=== PATIENT | male | born 1945 | race Caucasian/White ===

== ENCOUNTER → 2020-01-01 08:28 | Outpatient (BNVA) | payer MEDICARE, SELFPAY | PROVIDERS: PCP Internal Medicine; Referring Provider Internal Medicine; Visit Provider Nurse Practitioner Family | DX: G47.33 Obstructive sleep apnea (adult) (pediatric) (principal) | CPT/HCPCS: Q3014 ==

== ENCOUNTER 2020-03-24 13:01 | Outpatient (REF) | payer MEDICARE, SELFPAY | END 2020-03-24 13:02 | disposition home or self-care (01) | LOC: HO.LAB 13:01 | PROVIDERS: PCP Internal Medicine; Visit Provider Internal Medicine | DX: Z20.822 Contact with and (suspected) exposure to COVID-19 (principal) | CPT/HCPCS: 36415; C9803; U0003; U0005 ==

== ENCOUNTER 2020-04-10 11:59 | Outpatient (REF) | payer OTHER, SELFPAY | END 2020-04-10 12:00 | disposition home or self-care (01) | LOC: HO.LAB 11:59 | PROVIDERS: Visit Provider Internal Medicine | DX: Z20.822 Contact with and (suspected) exposure to COVID-19 (principal) | CPT/HCPCS: 36415; C9803; U0003; U0005 ==

== ENCOUNTER 2020-07-10 12:34 | Outpatient (REF) | payer MEDICARE, MEDICAID, SELFPAY | END 2020-07-10 12:35 | disposition home or self-care (01) | LOC: HO.LAB 12:34 | PROVIDERS: Visit Provider Internal Medicine | DX: Z20.822 Contact with and (suspected) exposure to COVID-19 (principal) | CPT/HCPCS: C9803; U0003; U0005 ==

== ENCOUNTER 2021-02-10 10:33 | Outpatient (REF) | payer MEDICARE, MEDICAID, SELFPAY ==
[2021-02-10 13:53] LABS: Binax Internal Control QC Valid; Binax Lot number: 9864; Binax Now Covid-19 Ag Negative (Negative)
== END 2021-02-10 10:34 | disposition home or self-care (01) ==
LOC: HO.LAB 10:33
PROVIDERS: Visit Provider Internal Medicine
DX: Z20.822 Contact with and (suspected) exposure to COVID-19 (principal)
CPT/HCPCS: 36415

== ENCOUNTER 2021-05-11 13:42 | Outpatient (REF) | payer OTHER, MEDICARE, SELFPAY ==
[2021-05-11 15:17] LABS: Vitamin B12 739 pg/mL (200-900)
== END 2021-05-11 13:43 | disposition home or self-care (01) ==
LOC: HO.LAB 13:42
PROVIDERS: PCP Internal Medicine; Visit Provider Psychiatry & Neurology Neurology
DX: G31.84 Mild cognitive impairment of uncertain or unknown etiology (principal)
CPT/HCPCS: 36415; 82607

== ENCOUNTER 2021-05-14 10:58 | Outpatient (REF) | payer MEDICARE, SELFPAY ==
[2021-05-14 12:39] LABS: MANUAL DIFF FLAG NO
[2021-05-14 12:53] LABS: Basophils Percent Auto 0.5 % (0-2); Eosinophils Absolute Auto 0.1 X10*3/uL (0.0-0.4); Eosinophils Percent Auto 1.6 % (0-4); Hemoglobin 15.7 g/dl (14.0-18.0); Imm Gran Abs Auto 0.03 X10*3/uL (0.00-0.03); Imm Gran Pct Auto 0.5 % (0.0-0.4); Lymphocytes Absolute Auto 1.1 X10*3/uL (1.2-4.9); Lymphocytes Percent Auto 18.7 % (20-40); Mean Corpuscular HGB Conc 32.7 g/dl (31.0-36.0); Mean Corpuscular Hemoglobin 30.4 pg (27.0-33.0); Mean Corpuscular Volume 92.8 fL (80.0-98.0); Mean Platelet Volume 9.7 fL (9.4-12.4); Monocytes Absolute Auto 0.6 X10*3/uL (0.1-1.2); Monocytes Percent Auto 10.1 % (2-11); Neutrophils Absolute Auto 3.9 x10*3/uL (2.0-8.3); Neutrophils Percent Auto 68.6 % (45-73); Platelet Count 279 X10*3/uL (160-400); Red Blood Count 5.17 X10*6/uL (4.60-5.80); Red Cell Distribution Width 13.4 % (11.0-16.0); White Blood Count 5.7 X10*3/uL (4.8-10.8)
[2021-05-14 13:18] LABS: Alanine Aminotransferase 33 U/L (0-40); Albumin Level 4.4 g/dL (3.5-5.0); Alkaline Phosphatase 94 U/L (39-117); Anion Gap 12 (12-20); Aspartate Amino Transferase 25 U/L (5-37); Bilirubin Total 0.7 mg/dL (0.0-1.0); Blood Urea Nitrogen 23 mg/dL (9-16); Calcium 9.9 mg/dL (8.4-10.2); Carbon Dioxide 29 mmol/L (22-29); Chloride 104 mmol/L (96-108); Estimated Glomerular Filt Rate > 60; Glucose Random 107 mg/dL (60-115); Potassium 5.6 mmol/L (3.3-5.1); Sodium 139 mmol/L (135-145); Total Protein 7.3 g/dL (6.5-8.0)
== END 2021-05-14 10:59 | disposition home or self-care (01) ==
LOC: HO.LAB 10:58
PROVIDERS: PCP Internal Medicine; Referring Provider Internal Medicine; Visit Provider Nurse Practitioner
DX: Z01.818 Encounter for other preprocedural examination (principal); Z80.0 Family history of malignant neoplasm of digestive organs
CPT/HCPCS: 36415; 80053; 85025; 99212

== ENCOUNTER → 2021-05-26 08:57 | Outpatient (BNVA) | payer MEDICARE, SELFPAY | PROVIDERS: PCP Internal Medicine; Visit Provider Nurse Practitioner Family | DX: G47.33 Obstructive sleep apnea (adult) (pediatric) (principal); Z79.899 Other long term (current) drug therapy | CPT/HCPCS: 99212 ==

== ENCOUNTER 2021-12-21 11:21 | Outpatient (REF) | payer MEDICARE, SELFPAY ==
--- NOTE | ~2021-12-21 | CT_ITS ---
EXAMINATION: CT HEAD WITHOUT CONTRAST CLINICAL INFORMATION: 76-year-old with head injury. COMPARISON: None. TECHNIQUE: Contiguous axial imaging was performed from the skull base to vertex without intravenous administration of contrast. This CT examination was performed using dose optimization techniques as appropriate, variously including the following: *Automated exposure control *Adjustment of mA and/or kV according to patient size (this includes techniques or standardized protocols for targeted exams where dose is matched to indication/reason for exam; i.e. extremities or head) *Use of iterative reconstruction technique DLP: 801 mGy-cm FINDINGS: No intracranial hemorrhage, extra-axial fluid collections, space-occupying process or mass effect. Downing-white matter differentiation is well maintained. 2 mm hypodensity in the ventral right thalamus noted, which is nonspecific and could reflect a perivascular space or a tiny remote infarct. Otherwise the brain parenchyma is normal in attenuation. The ventricular system and subarachnoid spaces are within normal limits without hydrocephalus. Calvarium is intact. The visualized airspaces are unopacified. The visualized extracranial soft tissue structures and intraorbital soft tissue structures appear symmetric and unremarkable within the limitations of the exam. CT/CT head/brain wo IV con IMPRESSION: 1. No acute intracranial process. No evidence for intracranial traumatic sequelae. 2. Possible prominent perivascular space versus tiny remote infarct in the right ventral thalamus. Otherwise normal exam.
== END 2021-12-21 11:22 | disposition home or self-care (01) ==
LOC: HO.CT 11:21
PROVIDERS: Visit Provider Student in an Organized Health Care Education/Training Program
DX: S09.90XA Unspecified injury of head, initial encounter (principal); X58.XXXA Exposure to other specified factors, initial encounter; Y93.9 Activity, unspecified; Y92.9 Unspecified place or not applicable; Y99.9 Unspecified external cause status
CPT/HCPCS: 70450

== ENCOUNTER 2022-02-04 06:14 | Day surgery (SDC) | payer MEDICARE, SELFPAY ==
[2022-01-28 10:29] VITALS: BMI 28.4
[2022-02-04] MEDS: Lactated Ringers 1,000 ML 50 ML IVCONT (06:45)
[2022-02-04 06:51] VITALS: BP 149/85; PULSE 94; RESP 18; TEMP 36.5; O2SAT 98
[2022-02-04 07:06] LABS: Anion Gap 15 (12-20); Carbon Dioxide 29 mmol/L (22-29); Chloride 107 mmol/L (96-108); Potassium 4.6 mmol/L (3.3-5.1); Sodium 146 mmol/L (135-145)
--- NOTE | 2022-02-04 07:24 | P.CONAN_ITS ---
HPI - Anesthesia Eval Consult details Narrative: screening colon PMFSH Active Problems Active Problems: All Active Problems (Updated 01/28/22 @ 10:24 by Jyoti Jurado RN) Severe obstructive sleep apnea (Acute) HTN (hypertension), benign (Acute) High cholesterol (Acute) History of COVID-19 (Acute) Insomnia (Acute) Allergic rhinitis (Acute) Memory problem (Acute) Colon cancer screening (Acute) Family history of colon cancer (Acute) Past Medical History Medical History Elevated cholesterol History of COVID-19 HTN (hypertension) Sleep apnea Family History Family History (Updated 05/26/21 @ 09:05 by BILLY Valdez) Mother Cancer of breast Brother Cancer of prostate Sister Cancer of colon Family history of problems with anesthesia: No Surgical History Surgical History History of colonoscopy History of esophagogastroduodenoscopy (EGD) Hx of appendectomy History of Problems with Anesthesia: No Social History Social History (Updated 05/26/21 @ 09:05 by BILLY Valdez) Household Members: Spouse Alcohol intake: current Alcohol intake frequency: holidays/special occasions only Patient Tobacco Use Status: Never used Tobacco Are you DNR?: No Advance Directives: No Advance Directives Information Provided: Yes Nutrition Risks: No Nutritional Risk Current occupational status: retired [employer] Allergies Allergy/AdvReac Type Severity Reaction Status Date / Time No Known Allergies Allergy Verified 02/04/22 06:55 Active Medications: Current Medications Lactated Ringer's (Lr) 1,000 mls @ 50 mls/hr IVCONT .Q20H TITUS Last Admin: 02/04/22 06:45 Dose: 50 mls/hr Home Medications Medication Instructions Recorded Confirmed Last Taken Type atorvastatin 40 mg tablet 40 mg PO BEDTIME 01/01/20 01/28/22 02/03/22 History trazodone 50 mg tablet 50 mg PO BEDTIME PRN Insomnia 05/14/21 01/28/22 02/03/22 History amlodipine 2.5 mg tablet 2.5 mg PO DAILY 01/28/22 01/28/22 02/03/22 History cetirizine 10 mg tablet 10 mg PO DAILY 01/28/22 01/28/22 02/03/22 History famotidine 20 mg tablet 20 mg PO BID 01/28/22 01/28/22 02/03/22 History fluticasone propionate 50 1 - 2 spray intranasal DAILY PRN 01/28/22 01/28/22 02/03/22 History mcg/actuation nasal Nasal Congestion spray,suspension zolpidem 5 mg tablet (Ambien) 5 mg PO BEDTIME 01/28/22 01/28/22 Unknown History Exam Exam Date and Time: February 04, 2022 0724 Height,Weight and Vital Signs: Height 5 ft 5 in Weight 77.564 kg Last Vital Signs Temp 97.7 F 02/04/22 06:51 Pulse 94 02/04/22 06:51 Resp 18 02/04/22 06:51 BP 149/85 H 02/04/22 06:51 Pulse Ox 98 02/04/22 06:51 O2 Del Method 02/04/22 06:51 Pertinent Lab Results Pertinent Lab Results: Laboratory Tests 02/04/22 06:27 Sodium 146 H Potassium 4.6 Chloride 107 Carbon Dioxide 29 Anion Gap 15 Airway Mallampati Class: II TM Dist: >3cm Neck ROM: Full Partial: Upper Heart: rr Lungs: cta Assessment and Plan Final Anesthetic Review Family History of Problems with Anesthesia: No History of Problems with Anesthesia: No ASA Class: II Final Preanesthetic Review: No Changes in Pt Med Stat, Meds/Allgs Chart Reviewed, Consent Obtained/Reviewed and Anes Risks/Benef Reviewed Patient Risk: Intermediate Procedure Risk: Low Anesthetic Plan Anesthetic Plan: MAC: Disposition: Standard PACU
--- NOTE | 2022-02-04 07:48 | MHC.SHP ---
Pre-Procedural Eval Section A Date of Service: 02/04/22 Section B Chief Complaint: Family history of malignant neoplasm of digestive Details of Present Illness: 76 y.o M with F Hx of CRC in siblings, here for colo. No personal hx of polyps. Relevant Family History (Specify if Yes): Yes Present Medications: see Short Stay Collaborative assessment Medical History: Significant History (HTN, ARAM, HLD ) History of Previous Operations: No relevant previous surgery Allergies: Allergies Allergy/AdvReac Type Severity Reaction Status Date / Time No Known Allergies Allergy Verified 02/04/22 06:55 Review of Systems Review of Systems Comment: 10 Point review of system negative Exam Exam Comment: Gen appear: No acute distress, well nourished HEENT: no icterus Chest: No overt resp distress Abd: soft, nontender, nondistended Psych: Stable affect, answering questions appropriately Neuro: A/Ox3 noted to move all extremities spontaneously Ext: no peripheral edema Plan Diagnosis/Plan: Unchanged I have reviewed the history and physical and performed a pertinent physical examination on my patient. No changes have occurred unless specified. Time Spent With Patient Time: Total time managing care of this patient today ____ minutes.
--- NOTE | 2022-02-04 07:49 | W.PM.OPN ---
Operative Note Operative Note Date of Service: 02/04/22 Narrative: Procedure: Colonoscopy Indication: Family history of colon cancer Endoscopist: Erica Cuevas MD Anesthesia Provider: Dr Parvin Gagnon Anesthesia type: MAC Instrument: Olympus [id number]-[id number] Consent: Indication, risks vs benefits, and alternatives were discussed with the patient who gave written informed consent to proceed. An operator electronic warfare was utilized to assist with the consent. EKG, pulse, pulse oximetry and blood pressure were monitored throughout the procedure. Please see anesthesia flowsheet. Procedure: The patient was brought to the procedure room and placed in the left lateral decubitus position. IV medications were administered by the anesthesia provider in attendance. A digital rectal exam was performed which was normal. The colonoscope was then inserted through the anus and advanced through the colon to the cecum at 75 cm. ileocecal valve and appendiceal orifice were identified. Mucosa was carefully examined under high definition white light as the instrument was slowly withdrawn in a retrograde panoramic fashion. Retroflexion was performed in ascending colon and rectum. The procedure was not difficult. There were no immediate obvious complications. The quality of the prep was BBPS: 3+3+3 = excellent Withdrawal time 14 minutes. Limitations: No limitations. Findings: Mucosa: Normal to cecum. Protruding lesions: 1 sessile polyp of size 6 mm in rectum. Cold snare polypectomy was performed. The polyp was completely removed and retrieved. More than expected oozing was noted after polypectomy which did not spontaneously cease after 2 minutes. Resolution 360 clip was applied for hemostasis. Medium internal hemorrhoids without stigmata of recent bleeding. Impression: 1. Normal colon mucosa 2. Total of 1 polyp removed from rectum. 3. Internal hemorrhoids Recommendations: - Follow path results. - Repeat colonoscopy in 5 years due to fam hx; if patient still in good health.
[2022-02-04 08:20] VITALS: BP 117/79; PULSE 84; RESP 14; TEMP 36.1; O2SAT 96
[2022-02-04 08:35] VITALS: BP 131/87; PULSE 86; RESP 16; TEMP 36.7; O2SAT 96
== END 2022-02-04 08:51 | disposition home or self-care (01) ==
PROVIDERS: Anesthesiology; PCP Internal Medicine; Visit Provider Internal Medicine
PROC: 0DJD8ZZ Inspection of Lower Intestinal Tract, Via Natural or Artificial Opening Endoscopic (ICD-10-PCS; CPT 45378; principal; 2022-02-04 07:30)
DX: Z12.11 Encounter for screening for malignant neoplasm of colon (principal); Z80.0 Family history of malignant neoplasm of digestive organs; K62.1 Rectal polyp; K64.8 Other hemorrhoids; I10 Essential (primary) hypertension; E78.00 Pure hypercholesterolemia, unspecified; G47.33 Obstructive sleep apnea (adult) (pediatric); Z79.51 Long term (current) use of inhaled steroids; Z79.899 Other long term (current) drug therapy; Z86.16 Personal history of COVID-19
CPT/HCPCS: 45385; 36415; 80051; 88305

== ENCOUNTER → 2022-02-18 09:13 | Outpatient (BNVA) | payer MEDICARE, SELFPAY | PROVIDERS: PCP Internal Medicine; Visit Provider Nurse Practitioner | DX: K62.1 Rectal polyp (principal); Z80.0 Family history of malignant neoplasm of digestive organs; Z98.890 Other specified postprocedural states | CPT/HCPCS: 99212 ==

== ENCOUNTER 2022-09-27 16:07 | Outpatient (REF) | payer MEDICARE, SELFPAY ==
[2022-09-27 18:52] LABS: Folate 11.3 ng/mL (> or = 4.0); Vitamin B12 600 pg/mL (200-900)
[2022-09-29 04:08] LABS: Syphilis Screen Nonreactive (Nonreactive)
== END 2022-09-27 16:08 | disposition home or self-care (01) ==
LOC: HO.HHCL 16:07
PROVIDERS: Visit Provider Internal Medicine
DX: R41.89 Other symptoms and signs involving cognitive functions and awareness (principal)
CPT/HCPCS: 36415; 82607; 82746; 86592; 86780

== ENCOUNTER 2023-09-09 10:30 | Outpatient (REF) | payer MEDICARE, SELFPAY ==
--- NOTE | ~2023-09-09 | XR_ITS ---
EXAMINATION: XR LUMBOSACRAL SPINE CLINICAL INFORMATION: Left sciatica pain. COMPARISON: July 24, 2014. TECHNIQUE: Three views of the lumbosacral spine. FINDINGS: Diffuse demineralization. Dextroscoliosis of the lumbar spine. Facet arthritis in the lower lumbar spine. Multilevel lumbar spondylosis with multilevel loss of disc space height most notable at L4-L5. XR/XR lumbar spine 2-3V IMPRESSION: Multilevel lumbar spondylosis most notable at L4-L5.
== END 2023-09-09 10:31 | disposition home or self-care (01) ==
LOC: HO.XRAY 10:30
PROVIDERS: PCP Internal Medicine; Visit Provider Internal Medicine
DX: M54.41 Lumbago with sciatica, right side (principal)
CPT/HCPCS: 72100